=== PATIENT | male | born 1970 | race Caucasian/White ===

== ENCOUNTER → 2020-06-13 10:54 | Outpatient (CLI) | payer BC ==
[2020-06-13 11:51] LABS: ALBUMIN 3.7 g/dL (3.4-5.0); BILIRUBIN - DIRECT 0.13 mg/dL (0.00-0.30); BILIRUBIN - INDIRECT 0.74 mg/dL (0.00-1.00); BILIRUBIN - TOTAL 0.87 mg/dL (0.2-1.3)
== END | disposition home or self-care (01) ==
LOC: D.US 10:54
PROVIDERS: ATTEND Internal Medicine Gastroenterology
DX: Z86.59 Personal history of other mental and behavioral disorders (principal)

== ENCOUNTER → 2020-06-27 11:54 | Outpatient (CLI) | payer BC ==
[2020-06-27 12:57] LABS: INR 1.03 (0.85-1.17); PROTIME 12.5 SECONDS (11.6-15.0)
[2020-06-27 13:12] LABS: ALBUMIN 3.9 g/dL (3.4-5.0); BILIRUBIN - DIRECT 0.17 mg/dL (0.00-0.30); BILIRUBIN - INDIRECT 0.55 mg/dL (0.00-1.00); BILIRUBIN - TOTAL 0.72 mg/dL (0.2-1.3)
[2020-06-28 10:11] LABS: ANA REFLEX - DIRECT Negative (Negative); HEPATITIS C ANTIBODY <0.1 S/CO RAT (0.0-0.9)
[2020-06-28 14:10] LABS: ALPHA FETOPROTEIN -(TUMOR MRK) 6.4 ng/mL (0.0-8.3)
== END | disposition home or self-care (01) ==
LOC: D.LAB 11:54
PROVIDERS: ATTEND Internal Medicine Gastroenterology
DX: K74.60 Unspecified cirrhosis of liver (principal)